=== PATIENT | female | born 1995 ===

== ENCOUNTER 2016-07-30 17:38 | Emergency (ER) | payer OTHER ==
[2016-07-30] MEDS ORDERED: cefTRIAXone VIAL(*) 250 MG VIAL IM ONE (18:44)
[2016-07-30] MEDS ORDERED: Lidocaine 1% MPF* 2 ML VIAL INJ ONE (18:44)
[2016-07-30] MEDS ORDERED: Azithromycin TAB* 250 MG PO ONE (18:44)
--- NOTE | 2016-07-30 18:54 | UC ---
Complaint Female HPI - HPI Summary HPI Summary: 6 days ago pt had unprotected sexual contact with a male partner. 3 days later he developed dysuria and is being treated/tested for chlamydia. She denies symptoms at this time, does not want testing for HIV, Hepatitis C, or Syphilis. - History Of Current Complaint Chief Complaint: [facility] Stated Complaint: PERSONAL Time Seen by Provider: 07/30/16 18:32 Hx Obtained From: Patient Hx Last Menstrual Period: 07/16/16 ?: No Timing: Constant Severity Currently: None Character: Not Applicable Aggravating Factor(s): Nothing Alleviating Factor(s): Nothing Associated Signs And Symptoms: Negative: Fever, Back Pain, Vaginal Bleeding/ Discharge, Vaginal Discharge, Vomiting(# Of Episodes =) - Allergies/Home Medications Allergies/Adverse Reactions: Allergies Allergy/AdvReac Type Severity Reaction Status Date / Time No Known Allergies Allergy Verified 07/30/16 18:09 Home Medications: Home Medications NK [No Home Medications Reported] 07/30/16 [History Confirmed 07/30/16] PMH/Surg Hx/FS Hx/Imm Hx Endocrine History Of: Denies: Diabetes, Thyroid Disease Cardiovascular History Of: Denies: Cardiac Disorders, Hypertension Respiratory History Of: Denies: COPD, Asthma GI/ History Of: Denies: Ulcer - Surgical History Surgical History: None - Family History Known Family History: Positive: Other - no hx of marfan syndrome - Social History Occupation: Student Lives: Alone Alcohol Use: Occasionally Substance Use Type: None Smoking Status (MU): Never Smoked Tobacco Review of Systems Constitutional: Negative Skin: Negative Eyes: Negative ENT: Negative Respiratory: Negative Cardiovascular: Negative Gastrointestinal: Negative Genitourinary: Negative Motor: Negative Neurovascular: Negative Musculoskeletal: Negative Neurological: Negative Psychological: Negative All Other Systems Reviewed And Are Negative: Yes Physical Exam Triage Information Reviewed: Yes Appearance: Well-Appearing, No Pain Distress, Well-Nourished Vital Signs: Initial Vital Signs Temp 98.2 F 07/30/16 18:05 Pulse 60 07/30/16 18:05 Resp 18 07/30/16 18:05 BP 115/61 07/30/16 18:05 Pulse Ox 100 07/30/16 18:05 Vital Signs Reviewed: Yes Eye Exam: Normal Eyes: Positive: Conjunctiva Clear ENT Exam: Normal ENT: Positive: Normal ENT inspection, Hearing grossly normal, Pharynx normal, TMs normal Dental Exam: Normal Neck exam: Normal Neck: Positive: Supple, Nontender, No Lymphadenopathy Respiratory Exam: Normal Respiratory: Positive: Chest non-tender, Lungs clear, Normal breath sounds, No respiratory distress, No accessory muscle use Cardiovascular Exam: Normal Cardiovascular: Positive: RRR, No Murmur Musculoskeletal Exam: Normal Neurological Exam: Normal Neurological: Positive: Alert Psychological Exam: Normal Skin Exam: Normal - Additional Comments I offered pelvic exam and explained that it was part of the evaluation of her concerns, but pt has somewhere else to be and since she has no symptoms she would prefer to avoid it if possible. I encouraged her to come back if she develops any new symptoms or problems. Complaint Female Dx - Differential Dx/Diagnosis Provider Diagnoses: STI testing. possible chlamydia exposure Discharge - Discharge Plan Condition: Stable Disposition: HOME Patient Education Materials: Sexually Transmitted Diseases (ED) Referrals: No Primary Care Phys,NOPCP [Primary Care Provider] - Additional Instructions: Labwork pending. You have declined further testing and examination today -- please feel free to return here if you have new symptoms or further concerns.
== END 2016-07-30 19:01 | disposition home or self-care (01) ==
LOC: UCEAST 17:38
DX: R30.0 Dysuria (principal); Z11.3 Encounter for screening for infections with a predominantly sexual mode of transmission
CPT/HCPCS: 81003; 87491; 87591; 96372; 99202; A9270-GY; G0463; J0696